=== PATIENT | female | born 1965 | race Caucasian/White ===

== ENCOUNTER 2016-07-07 20:56 | Emergency (ER) | payer BC ==
[2016-07-07] MEDS ORDERED: Sodium Chloride 0.9% 1,000 ML PRIMARY IV ONE (20:59)
[2016-07-07] MEDS ORDERED: IPRATROPIUM/ALBUTEROL SULFATE 3 ML NEB NEB ONE (20:59)
[2016-07-07 21:14] VITALS: RESP 18; TEMP 98.9
[2016-07-07] MEDS ORDERED: cefTRIAXone Inj 1 GM in Sodium Chloride 0.9% 100 ML IV ONE (21:47)
[2016-07-07 21:58] LABS: BLOOD UREA NITROGEN 12 mg/dL (7-22); CALCIUM 9.3 mg/dL (8.7-10.7); EST GLOMERULAR FILTRATION > 60 (>60 ml/min/1.73m(2)); SERUM ALBUMIN 4.3 g/dL (3.5-4.8)
[2016-07-07 22:35] LABS: BASOPHILS # (AUTO) 0.04 10*3/UL; BASOPHILS % (AUTO) 0.3 % (0-1); EOSINOPHILS # (AUTO) 0.05 10*3/UL; EOSINOPHILS % (AUTO) 0.3 % (0-8); HEMATOCRIT 39.6 % (37.0-47.0); HEMOGLOBIN 13.1 g/dL (12.0-16.0); LYMPHOCYTES # (AUTO) 1.45 10*3/uL; MEAN CORPUSCULAR HEMOGLOBIN 29.6 PG (27-31); MEAN CORPUSCULAR HGB CONC 33.1 g/dL (33-37); MEAN CORPUSCULAR VOLUME 89.6 FL (81-99); MONOCYTES # (AUTO) 0.89 10*3/UL (0.3-0.8); MONOCYTES % (AUTO) 5.6 % (5-15); NEUTROPHILS # (AUTO) 13.37 10*3/UL; NEUTROPHILS % (AUTO) 84.4 % (50-80); RED BLOOD COUNT 4.42 10^6/uL (4.20-5.40)
[2016-07-07 22:38] LABS: PLATELET MORPHOLOGY COMMENT NORMAL MORPHOLOGY (NORM); RBC MORPHOLOGY COMMENT NORMAL MORPHOLOGY (NORM); WBC MORPHOLOGY COMMENT NORMAL MORPHOLOGY (NORM)
--- NOTE | 2016-07-08 05:46 | PDOC ---
General Adult HPI - General Chief Complaint: General Medical Stated Complaint: COUGH, FEVER, CHEST CONGESTION Date Seen by Provider: 07/07/16 Time Seen by Provider: 21:00 Source: POSITIVE: Patient Exam Limitations: POSITIVE: No limitations Nurse's Notes Reviewed & Considered: Yes - History of Present Illness Initial Comment: The patient is a 50-year-old female. She presents to the emergency room with an approximately 7 day history of cough with some shortness of breath. She's also had some hoarseness. Possibly intermittent fevers. Patient has just returned from visiting her grandson children in [place] rate she states she flew home from this visit. Her grandchildren were not ill. Have you received a tetanus shot in the past 10 years?: Yes Body Location Affected: REPORTS: Chest Timing: REPORTS: Constant Duration: >1 week (Approximately one week) Severity: Moderate Quality: REPORTS: Other (Patient denies any pain anywhere) Context: REPORTS: None Modifying Factors: improves with: Coughing Similar Symptoms Previously: No Recent Care Received: REPORTS: Denies Any Prior Injuries Related to Current Complaint?: No - Patient Home Medications Home Medications: Home Medications Levothyroxine Sodium 1 tab PO DAILY #30 tab 04/06/16 Azithromycin [Zithromax] 500 mg PO DAILY #5 tab 07/07/16 - Patient Allergies Allergies/Adverse Reactions: Allergies Allergy/AdvReac Type Severity Reaction Status Date / Time diphenhydramine HCl Allergy Intermediate siezure Verified 07/07/16 21:14 [From Benadryl] Sulfa (Sulfonamide AdvReac Intermediate rash Verified 07/07/16 21:14 Antibiotics) Past Medical History - heen HEENT History: Denies History Cardiovascular History: Denies History Respiratory History: Denies History Gastrointestinal History: Denies History Genitourinary History: Denies History Endocrine History: Denies History Musculoskeletal History: Denies History Prosthesis or Implant: No Neurological History: Denies History Blood Disorders: Denies History Psychiatric History: Denies History Female Reproductive History: Denies History Cancer History: Denies History In Past Year Been Physically Harmed or Verbally Threatened: No History of MDRO: No Tobacco Use: Former Smoker Alcohol Use: Sober Substance Use Type: None Previous Surgical History: Yes Type / Date of Surgery: Nose surgery Significant Family History: No pertinent family hx Past Medical History Reviewed: Reviewed - No Changes ROS - Limitations ROS Limitations: No Limitations Constitution: REPORTS: Fever (Subjectively, intermittent) Cardiovascular: REPORTS: Denies Cardiac Symptoms Respiratory: REPORTS: Cough Productive (Productive of mucoid sputum), Shortness Of Breath Neurological: REPORTS: Denies Neuro Symptoms Gastrointestinal: REPORTS: Denies GI Symptoms Endocrine: REPORTS: Denies Symptoms Musculoskeletal: REPORTS: Denies MS Symptoms Genitourinary: REPORTS: Denies Symptoms Eyes: REPORTS: Denies Symptoms ENT: REPORTS: Denies Symptoms Skin: REPORTS: Denies Skin Symptoms Lympathic: REPORTS: Denies Lympathic Symptoms Immunologic: POSITIVE: Denies Symptoms Psychiatric: POSITIVE: Denies Psych Symptoms General Adult Exam - General Appearance General Appearance: POSITIVE: Alert, Cooperative, No Acute Distress, No Evidence of Trauma - HEENT HEENT: POSITIVE: Head Inspection Nml, Eyes Inspection Nml, Ears Inspection Nml, Nose Inspection Nml, Oral/Dental Inspect. Nml, Pharynx Inspect. Nml, PERRL, EOMI - Pupils Pupil Size: 4 mm: Bilateral (PERRLA) - Neck Neck: POSITIVE: Normal Inspection, Thyroid Normal - Respiratory Respiratory: POSITIVE: Wheezes (Scattered mild end-expiratory wheezing) - Cardiovascular Cardiovascular: POSITIVE: Regular Rate & Rhythm, No Murmur, No Gallop, PMI Normal Peripheral Pulses: Radial (R): 2+, Radial (L): 2+ - Abdomen Abdomen: Soft: (All Quadrants), Normal Bowel Sounds: (All Quadrants), Denies Tenderness: (All Quadrants), No Splenomegaly: (All Quadrants), No Hepatomegaly: (All Quadrants), No Guarding: (All Quadrants), No Rebound: (All Quadrants), No Palpable Pulse: (All Quadrants), No Palpabale Mass: (All Quadrants), No Distention: (All Quadrants), No Rigidity: (All Quadrants) - Back Back: POSITIVE: Normal Inspection - Skin Skin: POSITIVE: Normal Color, Warm, Dry, No Rash - Extremities Extremity: Non-Tender: (All Extremities), Normal ROM: (All Extremities), Normal Inspection: (All Extremities) - Neurological / Psychological Neurological: POSITIVE: Oriented X3, budget coordinator Normal As Tested, Motor Normal, Sensation Normal, 5, 6 General Adult Progress - Results Reviewed by me Xrays/CTs/US Reviewed by me: Yes Discussed with Radiologist: No Radiology Findings: Infiltrate, mainly right middle lobe; possibly some and left lower lobe as well. Lab Results Reviewed: Yes Lab Results:: Laboratory Results 07/07/16 Range/Units 21:10 WBC 15.85 H (4.8-10.8) 10^3/uL RBC 4.42 (4.20-5.40) 10^6/uL Hgb 13.1 (12.0-16.0) g/dL Hct 39.6 (37.0-47.0) % MCV 89.6 (81-99) FL MCH 29.6 (27-31) PG MCHC 33.1 (33-37) g/dL RDW Std Deviation 43.7 (39-50) fL RDW Coeff of Екатерина 13.6 (11.5-14.5) % Plt Count 378 H (140-350) 10*3/uL MPV 10.0 (7.4-12.2) FL Immature Gran % (Auto) 0.3 (0-5) % Neut % (Auto) 84.4 H (50-80) % Lymph % (Auto) 9.1 L (10-50) % [place] % (Auto) 5.6 (5-15) % Eos % (Auto) 0.3 (0-8) % Baso % (Auto) 0.3 (0-1) % Immature Gran # (Auto) 0.05 10*3/UL Neut # (Auto) 13.37 10*3/UL Lymph # (Auto) 1.45 10*3/uL [place] # (Auto) 0.89 H (0.3-0.8) 10*3/UL Eos # (Auto) 0.05 10*3/UL Baso # (Auto) 0.04 10*3/UL WBC Morphology Comment Normal morphology (NORM) Plt Morphology Comment Normal morphology (NORM) RBC Morph Comment Normal morphology (NORM) Sodium 137 (135-145) meq/L Potassium 4.2 (3.8-5.2) meq/L Chloride 101 (98-112) meq/L Carbon Dioxide 25 (23-33) meq/L Anion Gap 11 (5-20) BUN 12 (7-22) mg/dL Creatinine 0.8 (0.50-1.20) mg/dL Estimated GFR > 60 (>60 ml/min/1.73m(2)) BUN/Creatinine Ratio 15.00 (6-20) Glucose 122 H (78-110) mg/dL Calculated Osmolality 284.0 (267-292) mOsm/kg Calcium 9.3 (8.7-10.7) mg/dL Total Bilirubin 0.6 (0.3-1.2) mg/dL AST 20 (8-39) IU/L ALT 31 (9-52) IU/L Alkaline Phosphatase 82 (38-126) IU/L Total Protein 7.5 (6.1-8.0) g/dL Albumin 4.3 (3.5-4.8) g/dL Globulin 3.2 (2.50-4.10) g/dL Albumin/Globulin Ratio 1.30 (1.3-2.0) mg/g - Patient's Progress Pain Medication Addressed: POSITIVE: Not Applicable School/Work Release Addressed: POSITIVE: Yes Re-Examine Time: 23:10 Re-Examine Comment: 2 blood cultures were drawn. Patient given a DuoNeb nebulizer treatment with resolution of her wheezing and patient feels much better. Oxygen saturation on discharge is 94% on room air. Patient given a gram of Rocephin IV and 500 mg of Zithromax IV. Alternatives of treatment, including admission, discussed with patient. Patient elects to attempt outpatient therapy with antibiotics; see discharge instructions. Status: POSITIVE: Improved, Re-Examined Antibiotics Given: Yes (Zithromax and Rocephin in ER; discharged on Zithromax) Quality Measure Initiative: CAP: POSITIVE: SaO2, Antibiotic(s), BC, CXR or CT - Consult Counseled: POSITIVE: Patient, RE: Lab Results, RE: Radiology Results, RE: DX, RE : Need for F/U Patient Care Time - Estimated PCT Patient Care Time (In Minutes): 60 Vital Signs - VS Reviewed Vital Signs Reviewed: Yes Discharge Clinical Impression: Pneumonia, community acquired Discharge Disposition: Discharged to Home Condition: Stable Prescriptions / Orders: Azithromycin [Zithromax] 500 mg PO DAILY #5 tab Patient Instructions Given at Discharge: Pneumonia (ED) Additional Instructions: I believe you have a pneumonia, primarily involving the right lung. Your given IV antibiotics in the emergency room. Please continue oral antibiotics, Zithromax 1 daily for 5 days. Do not return to work for 5 days. Increase fluids. Use your albuterol inhaler, 2 puffs every 4 hours as necessary. Return to the emergency room any time if you develop high fevers and chills, chest pain, shortness of breath, or if your condition worsens in any way whatsoever. Follow Up With: ELAINE FERREIRA [Primary Care Provider] - (Instructions as above. Return here anytime if condition worsens.)
--- NOTE | 2016-07-08 08:36 | DI ---
PA /LATERAL CHEST X-RAY, 07/07/2016 9:00 PM : Clinical History: Shortness of breath. Previous Exam: None at this facility. There is no acute soft tissue or bony abnormality. Heart size is normal. There is a small amount of f luid in the minor fissure along with an infiltrate in what probably is the right upper lobe and the r ight lower lobe. There is also a density behind the heart consistent with an infiltrate. The findings would be consistent with early bilateral pneumonia. Mediastinal structures are normal. There are no pulmonary nodules. Reading: Bilateral pneumonia involving the right upper and right lower lobes and the left lower lobe.
== END 2016-07-08 | disposition home or self-care (01) ==
LOC: ER 20:56
DX: J18.8 Other pneumonia, unspecified organism (principal); R06.02 Shortness of breath
CPT/HCPCS: 36415; 71020; 80053; 85025; 87040; 94640; 96361; 96365; 96367; 99283; 99284; J0456; J7620; J0696; J7030; J7050